=== PATIENT | male | born 1995 | race Two or more races ===

== ENCOUNTER 2022-02-15 23:26 | Emergency (ER) | payer BC ==
[2022-02-15] MEDS ORDERED: ONDANSETRON 4 MG/2 ML VIAL ONE (23:32)
[2022-02-15] MEDS ORDERED: SODIUM CHLORIDE 1,000 ML IV ONE (23:34)
[2022-02-15] MEDS ORDERED: ONDANSETRON 4 MG/2 ML VIAL IVPB ONE (23:34)
[2022-02-16 00:01] VITALS: BP 129/73; TEMP 98.5; BMI 25.7
[2022-02-16] MEDS ORDERED: SODIUM CHLORIDE 1,000 ML IV ONE ×3 (00:25→23:34)
[2022-02-16 01:54] VITALS: PULSE 88
== END 2022-02-16 02:20 | disposition home or self-care (01) ==
LOC: FER 23:26
PROC: 3E033GC Introduction of Other Therapeutic Substance into Peripheral Vein, Percutaneous Approach (ICD-10-PCS; principal; 2022-02-15)
DX: R11.2 Nausea with vomiting, unspecified (principal); R19.7 Diarrhea, unspecified
CPT/HCPCS: 99284-25